=== PATIENT | male | born 1950 | race Caucasian/White ===

== ENCOUNTER 2016-06-19 11:05 | Emergency (ER) | payer OTHER ==
[~2016-06-19] VITALS: Ht 193 cm; Wt 89.9 kg
[2016-06-19 12:08] LABS: EOSINOPHIL (%) 0.5 % (0-5); HEMATOCRIT 40.2 % (38.0-50.0); IMMATURE GRANULOCYTE (%) 0.4 % (0.0-0.7); INSTRUMENT ABS NEUTROPHIL CT 5.3 K/uL; LYMPHOCYTE COUNT 1.4 K/uL (1.0-2.8); MCH 32.2 PG (29.0-34.0); MCHC 36.3 G/DL (30.0-36.0); MCV 88.7 FL (86-99); MEAN PLAT.VOLUME 9.9 uM^3 (9.0-12.4); MONOCYTE (%) 6.1 % (3-12); MONOCYTE COUNT 0.5 K/uL (0-0.8); NEUTROPHIL (%) 72.8 % (45-76); NEUTROPHIL COUNT 5.3 K/uL (1.8-6.4); PLATELET COUNT 176 K/uL (156-360); RBC DIS.WIDTH-CV 11.9 % (11.8-14.6); RBC DIS.WIDTH-SD 38.7 % (39-53); RED BLOOD COUNT 4.53 M/uL (4.00-5.50); WHITE BLOOD COUNT 7.3 K/uL (4.1-10.2)
[2016-06-19 12:16] LABS: INTER. NORMALIZED RATIO 1.1; PROTHROMBIN TIME 10.7 (9.2-11.2)
[2016-06-19 12:18] LABS: CHLORIDE 103 mEq/L (99-109); POTASSIUM 4.2 mEq/L (3.7-5.4); SODIUM 136 mEq/L (136-147)
[2016-06-19 12:20] LABS: GLUCOSE 362 mg/dL (70-99)
[2016-06-19 12:21] LABS: ANION GAP 12 MEQ/L (2-14)
[2016-06-19 12:24] LABS: GFR ESTIMATE (CALCULATED) > 59 mL/min/; UREA NITROGEN (BUN) 11 mg/dL (9-23)
[2016-06-19] MEDS ORDERED: KEFLEX500 MG PO (13:32)
[2016-06-19 13:49] VITALS: BP 147/85
== END 2016-06-19 13:49 | disposition home or self-care (01) ==
LOC: EME 11:05
PROVIDERS: Emergency Medicine
DX: L03.115 Cellulitis of right lower limb (principal); R73.9 Hyperglycemia, unspecified
CPT/HCPCS: 80048; 85025; 85610; 93971; 99281; 99283